=== PATIENT | female | born 1940 | race Caucasian/White ===

== ENCOUNTER 2017-07-31 08:34 | Outpatient (CLI) | payer MEDICARE, OTHER ==
--- NOTE | 2017-08-06 08:55 | Mammography Report ---
DATE OF EXAM: 07/31/2017 EXAMINATION: Digital bilateral screening mammogram 07/31/2017. CLINICAL INDICATION: A 76-year-old with history of left breast cancer, status post lumpectomy and radiation therapy. COMPARISON: 08/08/2017, 08/07/2017, 08/06, 08/05, 08/04, 08/03, 08/02. TECHNIQUE: Routine CC and MLO projections were obtained of the breasts. FINDINGS: The breasts again demonstrate scattered fibroglandular densities bilaterally. Postoperative and post-treatment changes in the left breast are stable. Coarse, typically benign calcifications are present. No suspicious masses, clustered microcalcifications, or regions of architectural distortion are identified. IMPRESSION: Benign findings. RECOMMENDATIONS: Routine annual screening unless otherwise clinically indicated. BI-RADS category 2 benign findings. STANDARD QUALIFYING STATEMENTS 1. This examination was reviewed with the aid of Computed-Aided Detection (CAD). 2. A negative or benign imaging report should not delay biopsy if clinically suspicious findings are present. Consider surgical consultation if warranted. More than 5% of cancers are not identified by imaging. 3. Dense breasts may obscure an underlying neoplasm. TD: 08/04/2017 17:09 NIKKI
== END 2017-07-31 08:35 | disposition home or self-care (01) ==
LOC: DI.N 08:34
PROVIDERS: ATTEND Family Medicine
DX: Z12.31 Encounter for screening mammogram for malignant neoplasm of breast (principal); Z85.3 Personal history of malignant neoplasm of breast
CPT/HCPCS: 77067

== ENCOUNTER 2018-08-06 10:09 | Outpatient (CLI) | payer MEDICARE, OTHER ==
--- NOTE | 2018-08-10 09:22 | Mammography Report ---
Reason: SCREENING MAMMO, HX BREAST L CANCER 1989 Procedure Date: 08/06/2018 Accession Number: [id number] / [id number] Procedure: MGN - Screening Mammo Dig Bilat CPT Code: FULL RESULT: EXAM: Screening Mammo Dig Bilat DATE: 08/06/2018 10:32 AM CLINICAL HISTORY: Screening. Prior history of treated left breast cancer. TECHNIQUE: Bilateral CC and MLO views were obtained. COMPARISON: 07/31/2017 through 07/24/2014 FINDINGS: The breasts demonstrate scattered fibroglandular densities bilaterally. Left breast: There are stable operative changes of prior lumpectomy. There are no suspicious masses, calcifications or areas of distortion. Right breast: There are no suspicious masses, calcifications or areas of distortion. IMPRESSION: Benign findings RECOMMENDATION: Routine annual screening unless otherwise clinically indicated. BI-RADS CATEGORY 2: Benign findings STANDARD QUALIFYING STATEMENTS: 1. This examination was reviewed with the aid of Computer-Aided Detection (CAD). 2. A negative or benign imaging report should not preclude biopsy if clinically suspicious findings are present. 3. Dense breasts may obscure an underlying neoplasm. 4. This examination was reviewed without the aid of 3D breast imaging (tomosynthesis).
== END 2018-08-06 10:10 | disposition home or self-care (01) ==
LOC: DI.N 10:09
PROVIDERS: ATTEND Physician Assistant
DX: Z12.31 Encounter for screening mammogram for malignant neoplasm of breast (principal); Z85.3 Personal history of malignant neoplasm of breast
CPT/HCPCS: 77067

== ENCOUNTER 2019-08-08 10:20 | Outpatient (CLI) | payer MEDICARE, OTHER ==
--- NOTE | 2019-08-08 11:48 | Mammography Report ---
Reason: ROUTINE MAMMO Procedure Date: 08/08/2019 Accession Number: [id number] / [id number] Procedure: MGN - Screening Mammo Dig Bilat CPT Code: Final Report FULL RESULT: EXAM: Screening Mammo Dig Bilat DATE: 08/08/2019 10:39 AM CLINICAL HISTORY: Personal history of left lumpectomy and radiation therapy TECHNIQUE: (B) - Bilateral CC and MLO views were obtained. COMPARISON: 08/06/2018, 07/31/2017, 07/30/2016, 07/25/2015, 07/24/2014, 07/25/13, 07/30/2012, 07/25/10 PARENCHYMAL PATTERN: (A) - The breasts demonstrate scattered fibroglandular densities bilaterally. FINDINGS: No significant interval change. Stable posttreatment changes left breast. There are no suspicious masses, calcifications, or areas of distortion. IMPRESSION: Benign findings. BI-RADS category 2. RECOMMENDATION: (ANNUAL) - Recommend routine annual screening mammography. BI-RADS CATEGORY: (2) - Benign Findings. STANDARD QUALIFYING STATEMENTS: 1. This examination was not reviewed with the aid of Computer-Aided Detection (CAD). 2. A negative or benign imaging report should not preclude biopsy if clinically suspicious findings are present. 3. Dense breasts may obscure an underlying neoplasm. 4. This examination was reviewed without the aid of 3D breast imaging (tomosynthesis).
== END 2019-08-08 10:21 | disposition home or self-care (01) ==
LOC: DI.N 10:20
DX: Z12.31 Encounter for screening mammogram for malignant neoplasm of breast (principal)
CPT/HCPCS: 77067

== ENCOUNTER 2020-08-03 09:16 | Outpatient (CLI) | payer MEDICARE, OTHER ==
--- NOTE | 2020-08-06 10:20 | Mammography Report ---
BILATERAL DIGITAL SCREENING MAMMOGRAM 3D/2D: 08/03/2020 CLINICAL: Routine screening. Personal history of left breast cancer. Comparison is made to exams dated: 08/08/2019 mammogram, 08/06/2018 mammogram, 07/31/2017 mammogram, 07/30/2016 mammogram, 07/25/2015 mammogram, and 07/24/2014 mammogram - [facility]. Th ere are scattered fibroglandular elements in both breasts. There are benign post operative findings in the left breast. No significant masses, calcifications, or other findings are seen in either breast. There has been no significant interval change. IMPRESSION: BENIGN There is no mammographic evidence of malignancy. A 1 year screening mammogram is recommended. This exam was interpreted at Station ID: [id number]. NOTE: For mammograms, a report in lay terms will be sent to the patient. Approximately 15% of breast malignancies will not be visualized mammographically. In the management of a palpable breast mass, a negative mammogram must not discourage biopsy of a clinically suspicious lesion. Electronically Signed By: Rico ibarra/edouard:08/03/2020 11:24:39 ACR BI-RADS Category 2: Benign Finding(s) 3342F PARENCHYMAL PATTERN: (A) - The breast(s) demonstrate(s) scattered fibroglandular densities. BI-RADS CATEGORY: (2) - 2 RECOMMENDATION: (ANNUAL) - Recommend routine annual screening mammography. [id number] 1 year screening LATERALITY: (B)
== END 2020-08-03 09:17 | disposition home or self-care (01) ==
LOC: DI.N 09:16
DX: Z12.31 Encounter for screening mammogram for malignant neoplasm of breast (principal); Z85.3 Personal history of malignant neoplasm of breast

== ENCOUNTER 2021-08-27 09:17 | Outpatient (CLI) | payer MEDICARE, OTHER ==
--- NOTE | 2021-08-27 10:26 | CT Report ---
PROCEDURE: HEAD WO INDICATIONS: SUBARACHNOID HEMORRHAGE. History of subarachnoid hemorrhage 2 months ago after ground-l evel wall. TECHNIQUE: Noncontrast 4.5 mm thick angled axial sections acquired from the foramen magnum to the vertex. For r adiation dose reduction, the following was used: automated exposure control, adjustment of mA and/or kV according to patient size. COMPARISON: None. Images are not currently available for comparison. FINDINGS: Image quality: Excellent. CSF spaces: Basal cisterns are patent. No extra-axial fluid collections. Ventricles are normal in size and shape. Brain: No midline shift. No intracranial masses or hemorrhage. Alfredo-white matter interface is norm al. Age-related volume loss and small vessel ischemic change. Skull and face: Calvarium and visualized facial bones are intact, without suspicious lesions. Sinuses: Visualized sinuses and mastoids are clear. IMPRESSION: Negative head CT for patient age. No evidence of acute stroke, hemorrhage, or mass. No e vidence of significant sequelae of recent intracranial hemorrhage. Reviewed by: Jef Mcguire MD on 08/27/2021 10:25 AM PST Approved by: Jef Mcguire MD on 08/27/2021 10:25 AM PST Station ID: [id number]
== END 2021-08-27 09:18 | disposition home or self-care (01) ==
LOC: DI 09:17
PROVIDERS: ATTEND Family Medicine
DX: Z09 Encounter for follow-up examination after completed treatment for conditions other than malignant neoplasm (principal); Z87.820 Personal history of traumatic brain injury